=== PATIENT | male | born 1970 | race Caucasian/White ===

== ENCOUNTER → 2018-02-15 23:15 | Outpatient (CLI) | payer BC, SELFPAY | PROVIDERS: PCP Family Medicine; Visit Provider Internal Medicine Critical Care Medicine | DX: G47.10 Hypersomnia, unspecified (principal) | CPT/HCPCS: 95810 ==

== ENCOUNTER → 2018-03-04 20:37 | Outpatient (CLI) | payer BC, SELFPAY | PROVIDERS: Family Provider Family Medicine; PCP Family Medicine; Visit Provider Internal Medicine Critical Care Medicine | DX: G47.30 Sleep apnea, unspecified (principal) | CPT/HCPCS: 95811 ==

== ENCOUNTER → 2018-05-02 10:54 | Outpatient (CLI) | payer BC, SELFPAY ==
[2018-05-02 10:03] VITALS: BMI 35.7
[2018-05-02 11:15] LABS: Hematocrit 43.6 % (40-54); Mean Corp Hgb Conc 34.4 g/gl (32-36); Mean Corpuscular Volume 87.2 fL (80-94); Platelet Count 176 K/mm3 (150-450); RBC Distribution Width CV 13.2 % (11.6-14.6); RBC Distribution Width SD 41.9 fl (35.1-43.9); White Blood Count 4.8 K/mm3 (4.4-11.0)
[2018-05-02 11:16] LABS: Scan Indicated on CBC? Y/N NO
[2018-05-02 11:41] LABS: Ferritin 419 ng/mL (26-388); Iron 95 ug/dL (65-175); Iron Binding Capacity,Total 293 ug/dL (250-450); PERCENT IRON SATURATION 32.4 % (15.0-55.0)
== END ==
PROVIDERS: Family Provider Family Medicine; PCP Family Medicine; Referring Provider Nurse Practitioner Acute Care; Visit Provider Nurse Practitioner Acute Care
DX: G47.33 Obstructive sleep apnea (adult) (pediatric) (principal)
CPT/HCPCS: 36415; 82728; 83540; 83550; 85027

== ENCOUNTER 2018-12-17 12:45 | Emergency (ER) | payer BC, SELFPAY ==
[2018-08-04 10:04] VITALS: BMI 36.9
[2018-12-17 12:47] VITALS: BP 151/97; PULSE 72; RESP 16; TEMP 36.7; O2SAT 99; BMI 33.3
--- NOTE | 2018-12-17 13:08 | ED.DCSUM_ITS ---
- ER Visit Summary Date of Service: 12/17/18 Chief Complaint: [Right buttock and leg pain] History of Present Illness: The patient is a 48 M [presents the emergency department with pain for about 8 days in his right buttock that radiates down his right leg. Patient denies any trauma. He has not had symptoms like this before. He denies weakness in extremities. He denies any loss of bowel or bladder function. He denies loss of sensation in the groin. Patient denies any fevers or recent illness. Patient states that actually pushing on his right buttock oftentimes will give him relief. Certain positions give him relief. He denies recent travel or surgery. Denies any chest pain or shortness of breath. He denies any leg swelling.] Physical Examination: [HEENT-PERRLA, EOMI. Cranial nerves II through XII grossly intact. TMs clear. Mucous membranes moist. No adenopathy. Cardiovascular-regular rate and rhythm without murmur or ectopy Lungs-clear to auscultation, chest wall stable without crepitus or subcu emphysema Abdomen-normoactive bowel sounds, soft, nontender, no rebound or rigidity, no peritoneal signs. Back exam-patient has no tenderness over the lumbar spine. No real tenderness over the lumbar paraspinal musculature. There is no erythema or warmth noted. Patient has deep tendon reflexes of plus 1 out of 4 bilaterally at the patella and Achilles. Patient has normal L5 extension bilaterally. Patient has minimal discomfort to the right buttock and piriformis muscle on palpation. He does have a positive straight leg raise on the right with pain at about 35 degrees while sitting. Extremities-intact ?4, normal range of motion, normal pulses, atraumatic] Test Results: [None indicated] Emergency Department Course and Treatment: [] Treatment Plan: [Patient to follow-up with his primary care physician within next 5 to 7 days. Patient given a prescription for Flexeril, [place], Naprosyn. I suspect patient likely has a sciatica as the etiology of his symptoms.] Disposition: [Discharged home stable condition. Patient advised to return if worsening pain, weakness in extremities, change in bowel or bladder function, saddle anesthesia, or condition should worsen anyway.] Impression: [Acute sciatica] This note was generated with [employer] software. It may contain incorrect words, spelling, and punctuation that were not noted in review of the chart prior to signing ED Disposition - Plan for ED Patient: Referrals: Yasir Scott MD [Primary Care Provider] -
--- NOTE | 2018-12-17 13:10 | ED.DEP ---
ED Disposition - Plan for ED Patient: Instructions: BACK PAIN w/ SCIATICA Prescriptions: cycloBENZAPRine HCl [Flexeril] 10 mg PO TID PRN #20 tab PRN Reason: Muscle Spasm Prescription Printed Naproxen [Naprosyn] 500 mg PO BID PRN #20 tab Prescription Printed Hydrocodone Bitart/Apap 5-325 [[place] 5MG-325MG] 1 tab PO Q4H PRN PRN 2 Days #20 tab PRN Reason: Pain Prescription Printed Referrals: Yasir Scott MD [Primary Care Provider] - 5-7 Days
== END 2018-12-17 13:30 | disposition home or self-care (01) ==
LOC: ED 13:16
PROVIDERS: Emergency Provider Emergency Medicine; Family Provider Family Medicine; PCP Family Medicine
DX: M79.604 Pain in right leg (principal); M54.31 Sciatica, right side; G47.33 Obstructive sleep apnea (adult) (pediatric); F17.220 Nicotine dependence, chewing tobacco, uncomplicated
CPT/HCPCS: 99282

== ENCOUNTER 2021-05-09 11:58 | Outpatient (CLI) | payer BC, SELFPAY ==
[2021-05-09 12:10] VITALS: BP 154/101; PULSE 84; RESP 16; TEMP 36.6; O2SAT 99; BMI 31.6
[2021-05-09] MEDS: 0.9% Saline Lock 10 ML Syringe IV (12:12)
[2021-05-09 12:52] VITALS: BP 132/82; PULSE 84; RESP 16; TEMP 37.3; O2SAT 98
[2021-05-09 13:52] VITALS: BP 128/92; PULSE 84; RESP 16; TEMP 36.9; O2SAT 97
== END 2021-05-09 23:59 | disposition home or self-care (01) ==
LOC: MS3OUT 11:58 → MS3 11:59
PROVIDERS: PCP Family Medicine; Referring Provider Nurse Practitioner Adult Health; Visit Provider Nurse Practitioner Adult Health
DX: Z23 Encounter for immunization (principal); U07.1 COVID-19
CPT/HCPCS: J7050; M0245; Q0245; A4216

== ENCOUNTER 2024-08-04 13:57 | Inpatient (IN) | payer BC, SELFPAY ==
[2024-08-04] VITALS (11 sets, daily range): BP systolic 125–151; BP diastolic 74–92; PULSE 78–101; RESP 12–20; TEMP 36.5–38.2; O2SAT 92–99; BMI 33.2; BMI 34.2
--- NOTE | 2024-08-04 14:39 | ED.VIS.GI ---
HPI HPI - GI History of Present Illness Chief Complaint: Abd Pain Informant: patient Abdominal Pain/Flank Pain Onset: Yesterday Context: Gradual Onset Timing: Continuous Quality: Stabbing Location: RLQ and LLQ Worsened by: Car ride and - (Coughing) Relieved by: Nothing Nausea/Vomiting/Emesis GI Symptom: Negative for Nausea or Vomiting Diarrhea/Melena/Hematochezia GI Symptom: Negative for Diarrhea, Melena or Hematochezia Associated Symptoms Associated Symptoms: Negative for Dysuria, Frequency or Hematuria Narrative Narrative: Patient presents with right lower abdominal pain that began yesterday. Patient states it is gradually gotten worse. Patient describes it as stabbing. Patient states it is mainly over his lower abdomen. Patient states it is worse on the right. Patient states it is worse with hitting bumps in the road and with coughing. Patient denies any nausea or vomiting. Patient denies any diarrhea, melena, or hematochezia. Patient denies any dysuria, frequency, or hematuria. PFSH PFS Medical History (Updated 08/04/24 @ 17:[address] Marvel Sebastian DO) Seasonal allergies NICOLE (obstructive sleep apnea) Home Medications ?Medication ?Instructions ?Recorded ?Last Taken ?Type NK 09/07/23 Unknown History Allergy/AdvReac Type Severity Reaction Status Date / Time Environmental Allergies: Allergy Intermediate Other Verified 08/04/24 13:58 Uncoded (seasonal) Family History Father Myocardial infarction Grandfather Myocardial infarction Surgical History ingrown toenail removal History of tonsillectomy Social History (Updated 08/04/24 @ 15:[address] Marvel Sebastian DO) Smoking Status: Never smoker Smokeless tobacco user: snuff second hand exposure: Yes alcohol intake: current alcohol intake frequency: holidays/special occasions only Alcohol type: beer substance use type: does not use ROS ROS ED Constitutional Constitutional ED: Reports fever(s); Denies chills Eyes Eyes: Denies blurry vision or change in vision ENT ENT ED: Denies rhinorrhea or sore throat Cardiovascular Cardiovascular: Denies chest pain or palpitations Respiratory/Chest Respiratory/Chest: Denies cough or dyspnea Gastrointestinal Gastrointestinal: Reports abdominal pain; Denies nausea or vomiting Genitourinary Genitourinary ED: Denies dysuria or hematuria Musculoskeletal Musculoskeletal: Denies back pain or neck pain Integumentary Denies abscess or rash Neurologic Neurologic: Reports headache(s); Denies weakness Allergic/Immunologic Allergic/Immunologic ED: Denies mouth swelling or urticaria EXAM Physical Exam Const Vital Signs: 08/04/24 13:58 08/04/24 16:13 Temperature 100.1 F H Temperature Source Oral Pulse Rate 101 H 87 Respiratory Rate 16 16 Blood Pressure 125/86 H 148/89 H Blood Pressure Mean 99 108 Pulse Ox 97 98 Oxygen Delivery Method Room Air Room Air Positive well nourished and well developed General Appearance ED: well developed and NAD HEENT Reports moist mucous membranes Neck supple and no JVD Resp normal respiratory effort and clear to auscultation bilaterally Cardio regular rate and regular rhythm GI non-distended Palpation: soft, tender LLQ, RLQ, suprapubic and Rovsing's sign and rebound tenderness present; Negative for guarding Neuro CN's II-XII intact bilaterally, moves all extremities and no sensory deficits noted Sensorium / Orientation: alert Motor Exam: strength 5/5 throughout Psych mental status grossly normal and thought process normal MDM MDM MDM Narrative Medical decision making narrative: Differential diagnosis includes appendicitis, diverticulitis, bowel obstruction, perforation, electrolyte abnormality, ureteral calculus, urinary tract infection, and pyelonephritis. CBC will be obtained to assess for leukocytosis and anemia. Comprehensive metabolic profile will be obtained to assess for hepatic function, renal function, and electrolyte abnormality. Urinalysis will be obtained to assess for urinary tract infection and hematuria. CT scan of the abdomen pelvis will be obtained to assess for appendicitis, diverticulitis, bowel obstruction, and perforation. Lab Data Labs: Laboratory Results - last 24 hr 08/04/24 15:00 WBC 14.5 H RBC 4.97 Hgb 14.7 Hct 41.5 MCV 83.5 MCH 29.6 MCHC 35.4 RDW Std Deviation 40.4 RDW Coeff of Efe 13.3 Plt Count 149 L MPV 10.4 Immature Gran % (Auto) 0.600 Neut % (Auto) 89.4 H Lymph % (Auto) 5.6 L [place] % (Auto) 3.8 Eos % (Auto) 0.3 Baso % (Auto) 0.3 Absolute Neuts (auto) 13.0 H Absolute Lymphs (auto) 0.82 L Nucleated RBC % 0 Sodium 132 L Potassium 3.6 Chloride 100 Carbon Dioxide 19.2 L Anion Gap 13 BUN 10 Creatinine 0.85 Estim Creat Clear Calc 131.62 Est GFR (MDRD) Non-Af 103 BUN/Creatinine Ratio 11.3 Glucose 100 H Calcium 9.2 Total Bilirubin 0.93 AST 29 ALT 27 Alkaline Phosphatase 56 Total Protein 7.0 Albumin 4.1 Globulin 2.9 Albumin/Globulin Ratio 1.4 Urine Color Yellow Urine Clarity Clear Urine pH 7.0 Ur Specific [place] 1.005 Urine Protein 30 H Urine Glucose (UA) Normal Urine Ketones Negative Urine Occult Blood 10 H Urine Nitrite Negative Urine Bilirubin Negative Urine Urobilinogen Normal Ur Leukocyte Esterase Negative Urine RBC 0-5 SEEN Urine WBC 0 SEEN Ur Squamous Epith Cells 0 SEEN Urine Bacteria 0 SEEN Urine Mucus 0 SEEN Radiography Diagnostic Testing: Clinical Impression(s) from Imaging Studies Abdomen/Pelvis CT 08/04/24 15:20 IMPRESSION: Inflammatory thickening of the cecum and ascending colon with inflammatory mass in the right lower quadrant. The appendix is not visualized separately. There is redundancy of the sigmoid colon with abnormality of the sigmoid colon. A phlegmon arising from the mesenteric side of the sigmoid colon should be ruled out. Small amount of free fluid in the pelvis. Reading Location: [facility] CT scan of the abdomen pelvis was obtained. There is inflammatory thickening of the cecum and ascending colon along with inflammatory mass in the right lower quadrant. The appendix is not visualized. There is also redundancy of the sigmoid colon with inflammatory changes. There is a small amount of free fluid in the pelvis. This was interpreted by the radiologist and was also independently reviewed by myself. Treatment and Re-Evaluation :: Patient was ordered morphine and Zofran. Patient was ordered IV fluids. Patient declined the morphine and Zofran at this time. Patient was given a dose of Zosyn. Case was discussed with Dr. Weir from general surgery. He recommended repeating the CT scan with oral contrast. This was ordered. Patient is agreeable with this. Case was discussed with Dr. Weir again. He was in to evaluate the patient and reviewed the CT scan images. He feels that this is from appendicitis and the patient to the operating room. Patient understands and is agreeable with the plan. All questions were answered. Discharge Plan Dx/Rx/DC Orders Clinical Impression: Acute appendicitis, Abdominal pain, right lower quadrant, Elevated blood pressure reading without diagnosis of hypertension, Tobacco chew use Disposition Disposition: Acute Care Hospital [facility]
[2024-08-04] MEDS: 0.9% Normal Saline (1000mL) 1,000 ML 999 ML IV (15:07)
[2024-08-04 15:16] LABS: Bacteria 0 SEEN /hpf (None Seen); Mucous, Urine 0 SEEN /hpf (<or=2+); Squamous Epithelial Cells - UA 0 SEEN /hpf (0-5); White Blood Cells 0 SEEN /hpf (0-5)
[2024-08-04 15:20] LABS: Absolute Lymphocyte Count 0.82 X10^3/uL (0.83-4.51); Basophil# 0.05 X10^3/uL; Basophil% 0.3 % (0-1); Eosinophil# 0.05 X10^3/uL; Eosinophils% 0.3 % (0-5); Hematocrit 41.5 % (40-54); Hemoglobin 14.7 g/dL (13.0-16.5); Lymphocyte # 0.82 X10^3/ul (0.83-4.51); Lymphocyte % 5.6 % (19-41); Mean Corp Hgb Conc 35.4 g/dL (32-36); Mean Corpuscular Hgb 29.6 pg (27.0-32.0); Mean Corpuscular Volume 83.5 fL (80-94); Mean Platelet Vol. 10.4 fl (6.2-12.0); Monocyte# 0.55 X10^3/uL; Monocyte% 3.8 % (0-10); NRBC Flagged by Analyzer 0 % (0-5); Neutrophil # 12.97 X10^3/uL (2.7-7.7); Neutrophil % 89.4 % (47-70); Platelet Count 149 K/mm3 (150-450); RBC Distribution Width CV 13.3 % (11.6-14.6); RBC Distribution Width SD 40.4 fl (35.1-43.9); Red Blood Count 4.97 M/mm3 (4.6-6.2); White Blood Count 14.5 K/mm3 (4.4-11.0)
--- NOTE | 2024-08-04 15:20 | CT_ITS ---
PROCEDURE: ABDOMEN/PELVIS W IV CONT ONLY 08/04/2024 REASON FOR EXAM: RIGHT LOWER QUADRANT ABDOMINAL PAIN TECHNIQUE: Abdomen and pelvis CT with intravenous contrast. Coronal and Sagittal reconstruction series were provided. PATIENT PREPARATION: Per protocol ORAL CONTRAST TYPE: None. CONTRAST: Isovue 3 7 VOLUME: 98 mL One or more dose reduction techniques were used (e.g., Automated exposure control, adjustment of the mA and/or kV according to patient size, use of iterative reconstruction technique. RADIATION DOSE SUMMARY: CTDlvol: 16 mGy DLP: 1431.86 mGycm COMPARISON: None FINDINGS: Lung bases: Mild dependent atelectasis Liver: Diffuse fatty infiltration. Gallbladder: Unremarkable Spleen: Normal size. Pancreas: Normal size without evidence of mass surrounding inflammation or ductal dilation. Adrenals: Unremarkable Kidneys: There is a 2.7 cm cyst in the midportion of the left kidney. Bladder: Reproductive Organs: Bowel: There is circumferential thickening of the cecum and ascending colon with increased markings in the surrounding peritoneal fat. There is evidence of an inflammatory mass in the mesentery in the right lower quadrant. This may be arising from the mesenteric side of the sigmoid colon. The appendix is not definitely visualized. There is also evidence of thickening of the distal rectosigmoid colon. Small amount of free fluid is seen in the pelvis. Appendix: Not identified Lymph nodes: Small lymph nodes are seen in the mesentery in the right lower quadrant suggestive of mesenteric adenitis. Vasculature: Mild diffuse atherosclerotic calcifications are noted. CT/Abdomen/Pelvis W IV Cont ONLY IMPRESSION: Inflammatory thickening of the cecum and ascending colon with inflammatory mass in the right lower quadrant. The appendix is not visualized separately. There is redundancy of the sigmoid colon with abnormali ty of the sigmoid colon. A phlegmon arising from the mesenteric side of the sigmoid colon should be ruled out. Small amount of free fluid in the pelvis. Reading Location: [facility]
[2024-08-04 15:29] LABS: Color, Urine Yellow (Yellow); Glucose, Dipstick Normal (Normal); Ketone-Dipstick Negative (Negative); Leukocyte Esterase-Dipstick Negative /ul (Negative); Nitrite-Dipstick Negative (Negative); Occult Blood-Urine 10 /ul (Negative); Protein-Dipstick 30 mg/dl (Negative); Specific Gravity, Urine 1.005 (1.002-1.030); Urine Bilirubin Dipstick Negative (Negative); Urine Clarity Clear (Clear); Urine Urobilinogen Normal (Normal)
[2024-08-04 15:44] LABS: ALB/GLOB Ratio 1.4 RATIO (0.9-2.4); AST(SGOT) 29 U/L (<=37); Alanine Aminotransfer ALT/SGPT 27 U/L (<=46); Albumin, Serum 4.1 g/dL (3.5-5.0); Alkaline Phosphatase 56 U/L (40-129); Anion Gap 13 (5-15); BUN 10 mg/dL (4-19); BUN/Creat Ratio 11.3 RATIO (10-20); Calcium,Total 9.2 mg/dL (7.6-11.0); Carbon Dioxide 19.2 mmol/L (21.0-32.0); Chloride 100 mmol/L (98-108); Creatinine, Serum 0.85 mg/dL (0.70-1.20); EST Glomerular Filtration Rate 103 (>60); Estimated Creatinine Clearance 131.62 ml/min (50-250); Globulin 2.9 g/dL (2.2-4.2); Glucose 100 mg/dL (70-99); Potassium 3.6 mmol/L (3.3-5.1); Sodium Level 132 mmol/L (133-145); Total Bilirubin 0.93 mg/dL (0.00-1.30)
[2024-08-04 15:47] LABS: Red Blood Cells-Urine 0-5 SEEN /hpf (0-5)
[2024-08-04] MEDS: Piperacil/Tazobactam 4.5 GM in 0.9% Normal Saline (100mL MB+) 100 ML IV (16:04)
--- NOTE | 2024-08-04 17:28 | PCM.HP.STD ---
HPI - General HPI Narrative VITALY NIELSON, is a 54 M who presents with right lower quadrant pain and suprapubic pain. He has been having pain since last night. He reports that is painful to drive over bumps. He reports no nausea or vomiting. He has not been having any fevers or chills. [facility] Medical History (Updated 08/04/24 @ 17:[address] Marvel Sebastian, DO) Seasonal allergies NICOLE (obstructive sleep apnea) Home Medications ?Medication ?Instructions ?Recorded ?Last Taken ?Type NK 09/07/23 Unknown History Allergy/AdvReac Type Severity Reaction Status Date / Time Environmental Allergies: Allergy Intermediate Other Verified 08/04/24 13:58 Uncoded (seasonal) Family History (Reviewed 09/07/23 @ 10:51 by Sylwia Lamar SPEECH COMMUNICATION PROFESSOR, SPEECH COMMUNICATION PROFESSOR-C) Father Myocardial infarction Grandfather Myocardial infarction Surgical History ingrown toenail removal History of tonsillectomy Social History (Updated 08/04/24 @ 15:[address] Marvel Sebastian, ) Smoking Status: Never smoker Smokeless tobacco user: snuff second hand exposure: Yes alcohol intake: current alcohol intake frequency: holidays/special occasions only Alcohol type: beer substance use type: does not use ROS Constitutional Constitutional: Denies anorexia, chills or fatigue Eyes Eyes: Denies blurry vision ENT HEENT: Denies abnormal hearing Cardiovascular Cardiovascular: Denies chest pain Respiratory/Chest Respiratory/Chest: Denies cough or dyspnea Gastrointestinal Gastrointestinal: Reports abdominal pain; Denies nausea, rectal bleeding or vomiting Genitourinary Genitourinary: Denies change in urinary stream Musculoskeletal Musculoskeletal: Denies abnormal gait Integumentary Integumentary: Denies jaundice Neurologic Neurologic: Denies abnormal gait Vital Signs Vital Signs Vital Signs: 08/04/24 13:58 08/04/24 16:13 Temperature 100.1 F H Temperature Source Oral Pulse Rate 101 H 87 Respiratory Rate 16 16 Blood Pressure 125/86 H 148/89 H Blood Pressure Mean 99 108 Pulse Ox 97 98 Oxygen Delivery Method Room Air Room Air Weight Weight: 252 lb Body Mass Index (BMI) 33.2 Physical Exam Const oriented x3 and no apparent distress Resp normal respiratory effort Cardio regular rate and regular rhythm GI soft to palpation Palpation: tender RLQ and Rovsing's sign Results Lab / Micro Data 08/04/24 15:00 08/04/24 15:00 Labs: Laboratory Results - last 24 hr 08/04/24 15:00: WBC 14.5 H, RBC 4.97, Hgb 14.7, Hct 41.5, MCV 83.5, MCH 29.6, MCHC 35.4, RDW Std Deviation 40.4, RDW Coeff of Efe 13.3, Plt Count 149 L, MPV 10.4, Immature Gran % (Auto) 0.600, Neut % (Auto) 89.4 H, Lymph % (Auto) 5.6 L, [place] % (Auto) 3.8, Eos % (Auto) 0.3, Baso % (Auto) 0.3, Absolute Neuts (auto) 13.0 H, Absolute Lymphs (auto) 0.82 L, Nucleated RBC % 0, Sodium 132 L, Potassium 3.6, Chloride 100, Carbon Dioxide 19.2 L, Anion Gap 13, BUN 10, Creatinine 0.85, Estim Creat Clear Calc 131.62, Est GFR (MDRD) Non-Af 103, BUN/Creatinine Ratio 11.3, Glucose 100 H, Calcium 9.2, Total Bilirubin 0.93, AST 29, ALT 27, Alkaline Phosphatase 56, Total Protein 7.0, Albumin 4.1, Globulin 2.9, Albumin/Globulin Ratio 1.4, Urine Color Yellow, Urine Clarity Clear, Urine pH 7.0, Ur Specific [place] 1.005, Urine Protein 30 H, Urine Glucose (UA) Normal, Urine Ketones Negative, Urine Occult Blood 10 H, Urine Nitrite Negative, Urine Bilirubin Negative, Urine Urobilinogen Normal, Ur Leukocyte Esterase Negative, Urine RBC 0-5 SEEN, Urine WBC 0 SEEN, Ur Squamous Epith Cells 0 SEEN, Urine Bacteria 0 SEEN, Urine Mucus 0 SEEN Imaging Radiology Impression Abdomen/Pelvis CT 08/04/24 15:20 IMPRESSION: Inflammatory thickening of the cecum and ascending colon with inflammatory mass in the right lower quadrant. The appendix is not visualized separately. There is redundancy of the sigmoid colon with abnormality of the sigmoid colon. A phlegmon arising from the mesenteric side of the sigmoid colon should be ruled out. Small amount of free fluid in the pelvis. Reading Location: [facility] Assessment & Plan Assessment/Plan (1) Acute appendicitis: PLAN: I reviewed the patient's CT scan. The patient likely has appendicitis that is inflaming the sigmoid colon as well. I discussed laparoscopic appendectomy with the patient in detail. I discussed the risks including but not limited to bleeding, infection, injury to surrounding organs such as the bowel, bladder, ureter. I also discussed the possibility of a bowel resection or colostomy if the sigmoid colon is involved. Patient is agreeable to proceed. Esteban Weir MD Pager: [facility] [address] [place] [address], [address] [place] [address] Office:
--- NOTE | 2024-08-04 17:39 | ED.RN ---
REPORT GIVEN TO CEMENT STORAGE WORKER
--- NOTE | 2024-08-04 18:06 | PRE.ANES_ITS ---
ASA Classification* ASA Classification ASA Classification: 2 and E Assessment & Plan Anesthesia* Anesthesia Assessment Anesthesia Assessment: Discussed sedation and/or anesthesia options, risks, benefits, and alternatives with patient/parents/legal guardian/POA. Questions invited. The patient/parents/legal guardian/POA seems to understand and agrees to proceed with anesthesia plan. Reviewed the physical assessment, medical history, allergy history and patient home medications list prior to surgery/procedure/anesthetic and documented any changes. Performed airway and anesthesia risk assessments. Anesthesia Type Anesthesia Type: General Anesthesia Focused Assessment* Temperature: 100 F Pulse Rate: 78 Blood Pressure: 151/92 Respiratory Rate: 19 Pulse Ox: 98 Airway Assessment Mouth opens: >3 cm Mallampati Score: II Focused Labs Anesthesia Preop lab: CBC WBC 14.5 K/mm3 (4.4-11.0) H 08/04/24 15:00 5 RBC 4.97 M/mm3 (4.6-6.2) 08/04/24 15:08/04/24 Hgb 14.7 g/dL (13.0-16.5) 08/04/24 15:00 08/04/24 Hct 41.5 % (40-54) 08/04/24 15:00 08/04/24 Plt Count 149 K/mm3 (150-450) L 08/04/24 15:00 08/04/24 CHEMISTRY Potassium 3.6 mmol/L (3.3-5.1) 08/04/24 15:00 08/04/24 Sodium 132 mmol/L (133-145) L 08/04/24 15:08/04/24 BUN 10 mg/dL (4-19) 08/04/24 15:08/04/24 Creatinine 0.85 mg/dL (0.70-1.20) 08/04/24 15:08/04/24 Glucose 100 mg/dL (70-99) H 08/04/24 15:00 08/04/24 COAG Pre-Assessment Diagnosis/Proposed Procedure Planned Operative Procedure(s): Laparoscopic appendectomy Anesthesia History 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 When Was Last Pacemaker Check QUESTION #4 FULL TEXT: You/Your Family Experience fever (hyperthermia) with Anesthesia Last Oral Intake Last Oral intake: Last Oral Intake NPO since 00:00 08/04/24 17:29 Meds taken in AM with sips of water? Meds patient instructed to take am of surgery PONV PONV - corporate traffic manager: PONV - corporate traffic manager Female HX of Motion Sickness HX of N/V After Surgery Non-Smoker Duration of Surgery greater than 60 minutes Number of Risk Factors PONV Score Height & Weight Height & Weight: Anesthesia: Height & Weight Height 6 ft 1 in 08/04/24 17:29 Weight: 114.305 kg 08/04/24 17:29 Body Mass Index (BMI) 33.2 08/04/24 17:29 Respiratory Assessment Respiratory Assessment - corporate traffic manager: Respiratory Tract Infection Hx - corporate traffic manager Hx Respiratory Tract Infection STOP Sleep Apnea STOP Sleep Apnea - corporate traffic manager: STOP Sleep Apnea - corporate traffic manager Hx Hypertension No 08/04/24 17:29 Hx Sleep Apnea Yes 08/04/24 17:29 CPAP Yes 08/04/24 17:29 BIPAP No 08/04/24 17:29 Do you snore loudly (louder than talking or can be heard Do you often feel tired/ fatigued/ sleepy during daytime? Has anyone observed you stop breathing during sleep? STOP Results Positive 08/04/24 17:29 QUESTION #5 FULL TEXT : Do you snore loudly (louder than talking or can be heard through closed doors)? 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 Specify any problems Hx of Preganancy in last 3 Months Nurse Filling Out Transfusion & Questions: Date: Time: Patient unable to answer at this time (ie. confused, unrespo /Reproduction History /Reproductive History - corporate traffic manager: /Reproductive Hx- corporate traffic manager Hx Now Gestational Age (in weeks): EDC: Hx Hx Para Hx Section SAB PFSH Medical History Seasonal allergies NICOLE (obstructive sleep apnea) Home Medications ?Medication ?Instructions ?Recorded ?Last Taken ?Type NK 09/07/23 Unknown History Allergy/AdvReac Type Severity Reaction Status Date / Time Environmental Allergies: Allergy Intermediate Other Verified 08/04/24 13:58 Uncoded (seasonal) Family History Father Myocardial infarction Grandfather Myocardial infarction Surgical History ingrown toenail removal History of tonsillectomy Social History Smoking Status: Never smoker Smokeless tobacco user: snuff second hand exposure: Yes alcohol intake: current alcohol intake frequency: holidays/special occasions only Alcohol type: beer substance use type: does not use Review of Systems (Anesthesia) ROS Narrative System reviewed and no additional complaints, except as documented.
--- NOTE | 2024-08-04 18:50 | APP_PTH ---
PATIENT: VITALY NIELSON LOC: [facility] U#:[id number] AGE/SX: 54/M [place] [facility] [place]/04/[address]: Dr. Esteban Weir MD : 1970 BED: 1 DIS: 08/07/2024 SPEC #: [id number] RECD: 08/07/24 12:04 STATUS: EDUARD MATIAS #: [id number] REVA: 08/04/24 18:[address]: Esteban Weir DEPT: SURGICAL PATHOLOGY RECD BY: Smith Fang ENTERED: 08/07/24 12:04 SP TYPE: APPENDIX OTHR DR: Dr. Yasir Scott MD Tissues: A - Appendix, NOS Procedures: Surgery Specimen Level III HEADER OPERATION: Laparoscopic, appendectomy and umbilical hernia repair PRE-OP DIAGNOSIS: Acute appendicitis TISSUE SUBMITTED: A- Appendix MICROSCOPIC DIAGNOSIS A. Appendix, appendectomy: * Acute appendicitis with periappendicitis * Diverticulum MICROSCOPIC DESCRIPTION Slides are reviewed. GROSS DESCRIPTION A. Received in formalin in a container labeled with the patient's name, date of , and appendix is an intact, firm, and dilated appendectomy specimen measuring 6.5 cm in length with a diameter ranging from 0.7 cm at the margin to 2.4 cm at the tip. The serosa is adams, roughened, with an abundance of adherent exudate. The stapled resection margin is inked black and serial sections reveal a pinpoint lumen with thickened aguilar measuring up to 0.9 cm. The tip is perpendicularly and serially sectioned to reveal an out-pouch filled with white, thick, creamy material. No distinct fecalith or perforation is identified. Character Impersonator sections are submitted as follows:A1. Margin, en face with cross-sectionA2. [id number]. Tip, serially sectioned and entirely submitted [facility] 08/08/2024 CPT:[id number]
[2024-08-04] MEDS: Bupiv/Epi 0.25% 30 ML Vial (19:00)
--- NOTE | 2024-08-04 19:37 | OP.PCM_ITS ---
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 The abdomen was prepped and draped in usual sterile fashion. A c urvilinear incision was made superior to his umbilicus and his umbilical hernia was used to access the abdomen. A 12 mm port was placed and the abdomen was insufflated to 15 mmHg. There was purulence throughout the abdomen. The patient was placed in Trendelenburg position and under direct guidance a suprapubic 5 mm port was placed as well as a left lower quadrant 5 mm port. The appendix was identified. It was tightly adherent to the sigmoid colon. The base did not appear inflamed. I was able to create a window in the mesoappendix and a stapler was used to staple the appendix off of the colon. It was followed distally and the tight adhesions to the colon were fractured and bluntly is much as possible. After the appendix was freed it was placed into an Endo Catch bag. The colon was inspected and there appeared to be no injury. The abdomen was irrigated copiously and suctioned dry. A 15 Mauritian round drain was placed through left lower quadrant incision and into the pelvis. It was sutured to the skin using 2-0 nylon suture. Next the air was allowed to desufflate from the abdomen and the ports were removed. The umbilical hernia was closed in a transverse fashion with interrupted 0 Vicryl sutures. The skin was closed with interrupted 4-0 Monocryl sutures. Local anesthetic was injected into each of the incisions. Dressings were applied. Patient was awoken and taken to PACU in stable condition. Surgical Findings: Very inflamed appendix with purulent peritonitis. Inflamed sigmoid colon from adherent appendix Complications Complications: No Admit VTE Documentation VTE Mechan Device Prophylaxis: SCD's
--- NOTE | 2024-08-04 19:47 | PCM.POST.ANE ---
Anesthesia: Postop Eval I Current Vital Signs Temperature: 100 F Pulse Rate: 78 Blood Pressure: 134/74 Respiratory Rate: 18 Pulse Ox: 95 Assessment Airway patent: Yes Spontaneous unlabored respirations: Yes nausea: No Vomiting: No Anesthesia Complication: No Fluid Hydration Crystalloid volume administer (ml): 500 Total IV fluid infused: 500 Progress Note Anesthesia document: Postop Eval 1 completed: Yes
--- NOTE | 2024-08-04 19:48 | PCM.POSTANE2 ---
Anesthesia Postop Eval I Sum Postop Eval Completion status Anesthesia document: Postop Eval 1 completed: Yes Anesthesia Postop Eval I Summary Anesthesia Postop Eval I Summary: Anesthesia Postop Eval I: Assessment Summary Airway patent Yes 08/04/24 19:47 Spontaneous unlabored Yes 08/04/24 19:47 respirations Mental status nausea No 08/04/24 19:47 Vomiting No 08/04/24 19:47 Anesthesia Postop Eval I: Fluid Summary Crystalloid volume administer 500 08/04/24 19:47 (ml) Colloids volume administered ( ml) Blood Product volume administered (ml) Total IV fluid infused 500 08/04/24 19:47 Anesthesia Postop Eval I: Summary Notes Anesthesia Complication No 08/04/24 19:47 Anesthesia Complication Comment: Post-operative progress note Anesthesia: Postop Eval II Evaluation Mental status: Awake and Calm Pain Level: 2 nausea: No Vomiting: No
[2024-08-04] MEDS: Lactated Ringers 1,000 ML 15 ML IV (19:56)
[2024-08-04] MEDS: Piperacil/Tazobactam 3.375 GM in 0.9% Normal Saline (50mL MB+) 50 ML IV (21:04)
[2024-08-04] MEDS: 0.9% Normal Saline (1000mL) 1,000 ML 100 ML IV (21:04)
[2024-08-05 00:05] VITALS: BP 130/85; PULSE 85; RESP 16; TEMP 37.2; O2SAT 95
[2024-08-05] MEDS: Ketorolac 15 MG/ML Vial IV ×2 (02:17→21:49)
[2024-08-05 04:22] VITALS: BP 139/92; PULSE 76; RESP 16; TEMP 36.6; O2SAT 96
[2024-08-05] MEDS: Piperacil/Tazobactam 3.375 GM in 0.9% Normal Saline (50mL MB+) 50 ML IV ×3 (05:58→21:35)
[2024-08-05 06:36] LABS: Absolute Lymphocyte Count 1.16 X10^3/uL (0.83-4.51); Absolute Neutrophil Count 7.7 X10^3/uL (2.0-7.7); Basophil# 0.02 X10^3/uL; Basophil% 0.2 % (0-1); Eosinophil# 0.03 X10^3/uL; Eosinophils% 0.3 % (0-5); Hematocrit 37.7 % (40-54); Lymphocyte # 1.16 X10^3/ul (0.83-4.51); Lymphocyte % 12.3 % (19-41); Mean Corp Hgb Conc 34.5 g/dL (32-36); Mean Corpuscular Hgb 29.6 pg (27.0-32.0); Mean Corpuscular Volume 85.9 fL (80-94); Mean Platelet Vol. 10.5 fl (6.2-12.0); Monocyte# 0.44 X10^3/uL; Monocyte% 4.7 % (0-10); NRBC Flagged by Analyzer 0 % (0-5); Neutrophil # 7.71 X10^3/uL (2.7-7.7); Neutrophil % 82.1 % (47-70); Platelet Count 127 K/mm3 (150-450); RBC Distribution Width CV 13.6 % (11.6-14.6); RBC Distribution Width SD 42.4 fl (35.1-43.9); Red Blood Count 4.39 M/mm3 (4.6-6.2); White Blood Count 9.4 K/mm3 (4.4-11.0)
[2024-08-05] MEDS: 0.9% Normal Saline (1000mL) 1,000 ML 100 ML IV (06:36)
[2024-08-05 07:14] LABS: Anion Gap 9 (5-15); BUN 9 mg/dL (4-19); BUN/Creat Ratio 10.2 RATIO (10-20); Calcium,Total 8.2 mg/dL (7.6-11.0); Carbon Dioxide 21.2 mmol/L (21.0-32.0); Chloride 105 mmol/L (98-108); Creatinine, Serum 0.91 mg/dL (0.70-1.20); EST Glomerular Filtration Rate 101 (>60); Estimated Creatinine Clearance 124.67 ml/min (50-250); Glucose 115 mg/dL (70-99); Potassium 3.7 mmol/L (3.3-5.1); Sodium Level 135 mmol/L (133-145)
[2024-08-05 09:00] VITALS: BP 133/84; PULSE 72; RESP 16; TEMP 37; O2SAT 96
--- NOTE | 2024-08-05 09:25 | PCM.PN.SRG ---
Subjective Subjective Patient is not passing any flatus yet. He seems comfortable. Objective Data Objective Data Vital Signs: Vital Signs Temp Pulse Resp BP Pulse Ox O2 Del Method 98 F 76 16 139/92 H 96 Room Air 08/05/24 04:22 08/05/24 04:22 08/05/24 04:22 08/05/24 04:22 08/05/24 04:22 08/05/24 04:22 Oxygen Delivery Method Room Air Weight: 259 lb 4.218 oz Body Mass Index (BMI) 34.2 Intake & Output: Intake and Output for Last 24 Hours 08/03/24 08/04/24 08/05/24 23:59 23:59 23:59 Intake Total 2100 / 2300 1503.33 / 1503.33 Output Total 100 / 150 435 / 435 Balance 1999 / 2149 1068.33 / 1068.33 Lab / Micro Data 08/05/24 06:16 08/05/24 06:16 Labs: Laboratory Results - last 24 hr 08/04/24 15:00: WBC 14.5 H, RBC 4.97, Hgb 14.7, Hct 41.5, MCV 83.5, MCH 29.6, MCHC 35.4, RDW Std Deviation 40.4, RDW Coeff of Efe 13.3, Plt Count 149 L, MPV 10.4, Immature Gran % (Auto) 0.600, Neut % (Auto) 89.4 H, Lymph % (Auto) 5.6 L, [place] % (Auto) 3.8, Eos % (Auto) 0.3, Baso % (Auto) 0.3, Absolute Neuts (auto) 13.0 H, Absolute Lymphs (auto) 0.82 L, Nucleated RBC % 0, Sodium 132 L, Potassium 3.6, Chloride 100, Carbon Dioxide 19.2 L, Anion Gap 13, BUN 10, Creatinine 0.85, Estim Creat Clear Calc 131.62, Est GFR (MDRD) Non-Af 103, BUN/Creatinine Ratio 11.3, Glucose 100 H, Calcium 9.2, Total Bilirubin 0.93, AST 29, ALT 27, Alkaline Phosphatase 56, Total Protein 7.0, Albumin 4.1, Globulin 2.9, Albumin/Globulin Ratio 1.4, Urine Color Yellow, Urine Clarity Clear, Urine pH 7.0, Ur Specific [place] 1.005, Urine Protein 30 H, Urine Glucose (UA) Normal, Urine Ketones Negative, Urine Occult Blood 10 H, Urine Nitrite Negative, Urine Bilirubin Negative, Urine Urobilinogen Normal, Ur Leukocyte Esterase Negative, Urine RBC 0-5 SEEN, Urine WBC 0 SEEN, Ur Squamous Epith Cells 0 SEEN, Urine Bacteria 0 SEEN, Urine Mucus 0 SEEN 08/05/24 06:16: WBC 9.4, RBC 4.39 L, Hgb 13.0, Hct 37.7 L, MCV 85.9, MCH 29.6, MCHC 34.5, RDW Std Deviation 42.4, RDW Coeff of Efe 13.6, Plt Count 127 L, MPV 10.5, Immature Gran % (Auto) 0.400, Neut % (Auto) 82.1 H, Lymph % (Auto) 12.3 L, [place] % (Auto) 4.7, Eos % (Auto) 0.3, Baso % (Auto) 0.2, Absolute Neuts (auto) 7.7, Absolute Lymphs (auto) 1.16, Nucleated RBC % 0, Sodium 135, Potassium 3.7, Chloride 105, Carbon Dioxide 21.2, Anion Gap 9, BUN 9, Creatinine 0.91, Estim Creat Clear Calc 124.67, Est GFR (MDRD) Non-Af 101, BUN/Creatinine Ratio 10.2, Glucose 115 H, Calcium 8.2 Radiography Diagnostic Testing: Radiology Impression Abdomen/Pelvis CT 08/04/24 15:20 IMPRESSION: Inflammatory thickening of the cecum and ascending colon with inflammatory mass in the right lower quadrant. The appendix is not visualized separately. There is redundancy of the sigmoid colon with abnormality of the sigmoid colon. A phlegmon arising from the mesenteric side of the sigmoid colon should be ruled out. Small amount of free fluid in the pelvis. Reading Location: [facility] Physical Exam Const oriented x3 and no apparent distress Resp normal respiratory effort GI soft to palpation and non-tender Assessment & Plan Assessment/Plan (1) Acute appendicitis: PLAN: Patient had acute appendicitis with purulent peritonitis. His drain is serosanguineous. Continue antibiotics. Continue on clear liquids until he starts passing flatus. I will decrease his IV fluid rate. Esteban Weir MD Pager: [facility] [address] [place] [address], [facility] [address] [place] [address] Office:
--- NOTE | 2024-08-05 11:11 | CASEMGMT ---
KEENA BUSH Assessment Face to Face with patient for initial transition planning/care coordination assessment. KEENA BUSH introduced self and role at [facility], pt voices understanding. Pt is A&Ox4 and is resting comfortably in bed and is calm. Care providers, pharmacy, and demographics verified. Admitting dx: Acute Appendicitis PCP: Yasir Scott Specialists: Denies Preferred Pharmacy: [facility] Insurance: ANTHEM Prescription Benefit: Yes LNOK: Swetha Noel (W) Living Arrangements: Pt lives with his and 22 y/o daughter in a single story home with a ramp to enter. Pt states that his daughter has autism. ADLs/IADLs: Independent Transportation: Self, family, friends. Denies concerns DME: Access to a W/C and FWW but does not use HHC/SNF: Denies hx or needs Pt?s goal: Home Plan: Home with pt family, no additional needs. 6-click score is 21. Pt denies home needs but PT is ordered and pending. Pt states that he feels safe returning home with his family once he is medically ready and denies further questions or concerns at this time. Judson Gonsales RN, CM
[2024-08-05 14:30] VITALS: BP 141/95; PULSE 77; RESP 16; TEMP 36.6; O2SAT 95
[2024-08-05 20:09] VITALS: BP 139/87; PULSE 77; RESP 16; TEMP 37.6; O2SAT 96
[2024-08-05] MEDS: 0.9% Saline Lock 10 ML Syringe IV (21:49)
[2024-08-06 00:22] VITALS: BP 125/77; PULSE 66; RESP 16; TEMP 37.1; O2SAT 94
[2024-08-06 05:43] VITALS: BP 126/83; PULSE 66; RESP 16; TEMP 37.2; O2SAT 96
[2024-08-06] MEDS: Piperacil/Tazobactam 3.375 GM in 0.9% Normal Saline (50mL MB+) 50 ML IV ×3 (05:46→21:57)
[2024-08-06] MEDS: Ketorolac 15 MG/ML Vial IV ×2 (05:50→14:36)
--- NOTE | 2024-08-06 08:45 | PN.SURG_ITS ---
Subjective Subjective Patient reports feeling much better. He is not passing any flatus yet. He denies nausea or vomiting. Objective Data Objective Data Vital Signs: Vital Signs Temp Pulse Resp BP Pulse Ox O2 Del Method 98.9 F 66 16 126/83 H 96 Room Air 08/06/24 05:43 08/06/24 05:43 08/06/24 05:43 08/06/24 05:43 08/06/24 05:43 08/06/24 05:43 Oxygen Delivery Method Room Air Weight: 259 lb 4.218 oz Body Mass Index (BMI) 34.2 Intake & Output: Intake and Output for Last 24 Hours 08/04/24 08/05/24 08/06/24 23:59 23:59 23:59 Intake Total 2100 / 2300 3235.00 / 3435.00 450 / 450 Output Total 100 / 150 435 / 450 35 / 35 Balance 1999 / 2150 2800.00 / 2985.00 415 / 415 Lab / Micro Data 08/05/24 06:16 08/05/24 06:16 Physical Exam Const oriented x3 and no apparent distress Resp normal respiratory effort GI soft to palpation and non-tender Extremity normal to inspection Assessment & Plan Assessment/Plan (1) Acute appendicitis: PLAN: The patient is doing well. His white count returned normal yesterday. I will recheck again tomorrow. THERESA is serosanguineous. Awaiting bowel function to advance diet. Continue antibiotics Esteban Weir MD Pager: [facility] [address] [place] [address], [address] [place] [phone] Office:
[2024-08-06 08:48] VITALS: BP 120/76; PULSE 76; RESP 16; TEMP 36.7; O2SAT 98
[2024-08-06 14:17] VITALS: BP 141/101; PULSE 69; RESP 16; TEMP 36.7; O2SAT 98
[2024-08-06] MEDS: 0.9% Saline Lock 10 ML Syringe IV (14:36)
[2024-08-06 21:38] VITALS: BP 140/98; PULSE 67; RESP 16; TEMP 36.7; O2SAT 97
[2024-08-07 04:20] VITALS: BP 118/78; PULSE 66; RESP 16; TEMP 36.9; O2SAT 95
[2024-08-07] MEDS: Piperacil/Tazobactam 3.375 GM in 0.9% Normal Saline (50mL MB+) 50 ML IV (06:01)
[2024-08-07 06:52] LABS: Absolute Lymphocyte Count 1.11 X10^3/uL (0.83-4.51); Absolute Neutrophil Count 3.2 X10^3/uL (2.0-7.7); Basophil# 0.03 X10^3/uL; Basophil% 0.6 % (0-1); Eosinophil# 0.19 X10^3/uL; Eosinophils% 3.8 % (0-5); Hematocrit 39.1 % (40-54); Hemoglobin 13.4 g/dL (13.0-16.5); Lymphocyte # 1.11 X10^3/ul (0.83-4.51); Lymphocyte % 22.2 % (19-41); Mean Corp Hgb Conc 34.3 g/dL (32-36); Mean Corpuscular Hgb 29.5 pg (27.0-32.0); Mean Corpuscular Volume 86.1 fL (80-94); Mean Platelet Vol. 9.7 fl (6.2-12.0); Monocyte# 0.49 X10^3/uL; Monocyte% 9.8 % (0-10); NRBC Flagged by Analyzer 0 % (0-5); Neutrophil # 3.17 X10^3/uL (2.7-7.7); Neutrophil % 63.2 % (47-70); Platelet Count 172 K/mm3 (150-450); RBC Distribution Width CV 13.2 % (11.6-14.6); RBC Distribution Width SD 41.3 fl (35.1-43.9); Red Blood Count 4.54 M/mm3 (4.6-6.2)
[2024-08-07 08:15] VITALS: BP 142/99; PULSE 68; RESP 16; TEMP 36.6; O2SAT 96
--- NOTE | 2024-08-07 08:59 | PN.SURG_ITS ---
Subjective Subjective Patient is doing well. He reports passing gas and bowel movement. He is not having any abdominal pain. He is only taking Tylenol. Denies nausea or vomiting. Objective Data Objective Data Vital Signs: Vital Signs Temp Pulse Resp BP Pulse Ox O2 Del Method 98 F 68 16 142/99 H 96 Room Air 08/07/24 08:15 08/07/24 08:15 08/07/24 08:15 08/07/24 08:15 08/07/24 08:15 08/07/24 08:15 Oxygen Delivery Method Room Air Weight: 259 lb 4.218 oz Body Mass Index (BMI) 34.2 Intake & Output: Intake and Output for Last 24 Hours 08/05/24 08/06/24 08/07/24 23:59 23:59 23:59 Intake Total 3235.00 / 3435.00 1277.25 / 1277.25 300 / 300 Output Total 435 / 450 87 / 87 / Balance 2800.00 / 2985.00 1190.25 / 1190.25 280 / 280 Lab / Micro Data 08/07/24 06:38 08/05/24 06:16 Labs: Laboratory Results - last 24 hr 08/07/24 06:38: WBC 5.0, RBC 4.54 L, Hgb 13.4, Hct 39.1 L, MCV 86.1, MCH 29.5, MCHC 34.3, RDW Std Deviation 41.3, RDW Coeff of Efe 13.2, Plt Count 172, MPV 9.7, Immature Gran % (Auto) 0.400, Neut % (Auto) 63.2, Lymph % (Auto) 22.2, [place] % (Auto) 9.8, Eos % (Auto) 3.8, Baso % (Auto) 0.6, Absolute Neuts (auto) 3.2, Absolute Lymphs (auto) 1.11, Nucleated RBC % 0 Physical Exam Const oriented x3 and no apparent distress Resp normal respiratory effort GI soft to palpation and non-tender Assessment & Plan Assessment/Plan (1) Acute appendicitis: PLAN: Patient is doing well and his white count is normal. I have removed his drain during morning rounds. I will discharge him home. Follow-up in 2 weeks. Esteban Weir MD Pager: [facility] [address] [place] [address], [address] [place] [address] Office:
--- NOTE | 2024-08-07 09:02 | PCM.DC.SUM ---
Providers Date of Admission: 08/04/24 Primary Care Physician: Dr. Yasir Scott MD Reason For Visit: ACUTE APPENDICITIS WITH PERITONITIS Diagnosis Discharge Diagnosis (1) Acute appendicitis: Status: Acute Code(s): K35.80 - Unspecified acute appendicitis Plan: Patient is doing well and his white count is normal. I have removed his drain during morning rounds. I will discharge him home. Follow-up in 2 weeks. Esteban Weir MD Pager: [facility] [address] [place] [address], [address] [place] [address] Office: Medications at Discharge Home Medications amoxicillin 500 mg-potassium clavulanate 125 mg tablet (Augmentin) 1 tab PO BID #10 tabs 08/07/24 Hospital Course Operations appendectomy Procedures None Summary of Care Provided Hospital Course: The patient presented with right lower quadrant pain and was taken immediately for laparoscopic appendectomy. He was found to have purulent peritonitis. Appendectomy was complicated by dense adhesions to the sigmoid colon. After surgery the patient had a drain in place and he was brought up to the floor. He was kept n.p.o. until he started having bowel function. Once he is tolerating diet and his white count was normal his drain was removed and he was discharged home on oral antibiotic Weight / BMI Weight Weight: 259 lb 4.218 oz Body Mass Index (BMI) 34.2 ABG / Lab / Microbiology Data 08/07/24 06:38 08/05/24 06:16 Laboratory: Laboratory Results - last 24 hr 08/07/24 06:38: WBC 5.0, RBC 4.54 L, Hgb 13.4, Hct 39.1 L, MCV 86.1, MCH 29.5, MCHC 34.3, RDW Std Deviation 41.3, RDW Coeff of Efe 13.2, Plt Count 172, MPV 9.7, Immature Gran % (Auto) 0.400, Neut % (Auto) 63.2, Lymph % (Auto) 22.2, [place] % (Auto) 9.8, Eos % (Auto) 3.8, Baso % (Auto) 0.6, Absolute Neuts (auto) 3.2, Absolute Lymphs (auto) 1.11, Nucleated RBC % 0 D/C Instructions Discharge Diet: Light diet - advance as tolerated Discharge Activity: May Not Drive (for 2-3 days or while taking narcotic pain medications.) May shower in (days): 1 Lifting Restrictions: 20 lbs for 2 weeks Call your doctor if your incision/area has: Continuous Slow Oozing, Sudden Increased Bleeding, Increased Pain/ Swelling, Increased Redness and Foul Smelling Discharge Call your doctor if you observe: Fever of 101 or Higher Suture Line Care: Avoid Pulling/Pushing and Avoid Pinching/Bending Remove Dressing in: 2 days Cleanse incision/area with: Soap & Water Additional Dressing/Incision Instructions: Keep dressing clean and dry. Change or remove dressing.. Leave steri strips for 1 week. May protect with a gauze bandaid. DC O2, CPAP, BIPAP Needs Home O2 Discharge instructions: No Please Follow Up With: Esteban Weir MD When: Please call to schedule 2 week follow up appointment. [phone] Meaningful Use Info Meaningful Use Meaningful Use Diagnoses (Choose all that apply): None applicable Ischemic Stroke Statin Dosing Therapy Reference: STATIN DOSE THERAPY REFERENCE: * Patients > 75 years receive moderate or high dose statin therapy. * Patients 75 years or YOUNGER should receive HIGH intensity statin dose unless contraindicated. You will be required to document reason for non-treatment if statin daily dose does not meet guidelines. HIGH DOSE STATIN THERAPY DAILY Atorvastatin > than or = to 40 mg Rosuvastatin > than or = to 20 mg Amlodipine + Atorvastatin > than or = to 2.5/40 mg Ezetimibe + Simvastatin 10/80 mg Simvastatin 80mg Discharge Plan Admission Admit Date/Time: 08/04/24 19:41 Attending Provider: Esteban Weir Primary Care Provider: Yasir Scott Discharge Orders/Prescriptions Prescriptions: New amoxicillin-pot clavulanate [Augmentin] 500-125 mg tablet 1 tab PO BID Qty: 10 0RF Referrals / Follow Up: Yasir Scott MD [Primary Care Provider] - Disposition Disposition (needs filled in before D/C Order can be placed): Home, Self Care
--- NOTE | 2024-08-07 10:27 | PHA.DC.MC.R ---
Pharmacy [facility] has performed discharge medication reconciliation and counseling for this patient. 1. Augmentin 500/125mg PO BID x 5 days The patient's discharge medication list was reviewed for discrepancies and discrepancies were resolved. The patient was counseled on the following discharge medications and changes in medications for homegoing were reviewed. The Reason for Use, instructions for use, and potential side effects were reviewed for all new medications. The patient's questions regarding all of their medications were answered. The patient was able to verbally demonstrate an understanding of their discharge medications. Patient counseled by hospital pharmacy technicianAmbrosio. Medications at Discharge Home Medications amoxicillin 500 mg-potassium clavulanate 125 mg tablet (Augmentin) 1 tab PO BID #10 tabs 08/07/24
== END 2024-08-07 10:39 | disposition home or self-care (01) | DRG 399 ==
LOC: ED 16:23 → MS3 17:43
PROVIDERS: Admitting Provider Surgery; Emergency Provider Emergency Medicine; PCP Family Medicine; Visit Provider Surgery
PROC: 0DTJ4ZZ Resection of Appendix, Percutaneous Endoscopic Approach (ICD-10-PCS; CPT 44970; principal; 2024-08-04 18:30)
DX: K35.30 Acute appendicitis with localized peritonitis, without perforation or gangrene (principal); F17.220 Nicotine dependence, chewing tobacco, uncomplicated; K42.9 Umbilical hernia without obstruction or gangrene; K66.0 Peritoneal adhesions (postprocedural) (postinfection)
CPT/HCPCS: 36415; 74177; 80048; 80053; 81001; 85025; 88304; 99284; Q9967; A4216; J2405